=== PATIENT | male | born 1980 | race Caucasian/White ===

== ENCOUNTER 2016-08-04 12:13 | Observation (INO) | payer BC, OTHER ==
[2016-08-04] MEDS ORDERED: NS 0.9% 1000 ML* 1,000 ML IV ONE (16:15)
[2016-08-04 16:37] LABS: Hematocrit 47 % (42-52); Hemoglobin 15.9 g/dl (14.0-18.0); Mean Corpuscular HGB Conc 34 g/dl (31-36); Mean Corpuscular Hemoglobin 30 pg (27-31); Mean Corpuscular Volume 88 fL (80-94); Mean Platelet Volume 7 um3 (7.4-10.4); Red Blood Count 5.38 10^6/ul (4.0-5.4); Red Cell Distribution Width 14 % (10.5-15); White Blood Count 7.8 10^3/ul (3.5-10.8)
[2016-08-04 16:52] LABS: Albumin 4.3 g/dL (3.2-5.2); BUN/Creatinine Ratio 12.1 (8-20); Calcium 9.8 mg/dL (8.6-10.3); EGFR African American 78.5 (>60); Globulin 3.3 g/dL (2-4); Magnesium 2.1 mg/dL (1.9-2.7); Total Bilirubin 0.5 mg/dL (0.2-1.0); Total Protein 7.6 g/dL (6.4-8.9)
--- NOTE | 2016-08-04 16:55 | ED ---
naresh Leo Timothy, scribed for Jemma Proctor MD on 08/04/16 at 1613 . Shortness of Breath - HPI Summary HPI Summary: Kush Aguirre is a 36 yo male presenting to [facility] with 3/10 CP and SOB for the past several weeks. He states he has some coughing, but denies wheezing. No sputum. pt states notices is worse with activity and walking. 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 Pt states this occurred in the setting of a lower extremity injury. He denies any other Sx No fevers, chills, rash. No lightheadedness, nausea, vomiting. Pt was on xarelto for 6 months after saddle PE, so he has been off for 2.5 years. Pt quit smoking recently (approx 1 month) He is not taking any medication currently, and denies recent trauma. He has not traveled anywhere taking longer than a few hours. No calf pain. - History of Current Complaint Chief Complaint: EDShortnessOfBreath Time Seen by Provider: 08/04/16 15:56 Hx Obtained From: Patient Onset/Duration: Gradual Onset, Lasting Weeks, Still Present Current Severity: Moderate Dyspnea At: Rest Associated Signs & Symptoms: Cough (Nonproductive), Chest Pain Unrelated to Cough - Risk Factors Pulmonary Embolism: Previous PE Cardiac: Negative Pseudomonas: Negative Tuberculosis: Negative - Allergy/Home Medications Allergies/Adverse Reactions: Allergies Allergy/AdvReac Type Severity Reaction Status Date / Time No Known Allergies Allergy Verified 01/22/16 10:34 PMH/Surg Hx/FS Hx/Imm Hx Previously Healthy: Yes Endocrine/Hematology History: Reports: Hx Anticoagulant Therapy - xarelto 3 years ago Denies: Hx Diabetes, Hx Thyroid Disease Cardiovascular History: Reports: Hx Hypertension Respiratory History: Reports: Hx Pulmonary Embolism - saddle, Other Respiratory Problems/Disorders Denies: Hx Asthma, Hx Chronic Obstructive Pulmonary Disease (COPD) GI History: Denies: Hx Ulcer - Immunization History Date of Tetanus Vaccine: unk Date of Influenza Vaccine: no Infectious Disease History: No Infectious Disease History: Denies: Hx Clostridium Difficile, Hx Hepatitis, Hx Human Immunodeficiency Virus (HIV), Hx of Known/Suspected MRSA, Hx Shingles, Hx Tuberculosis, Hx Known/ Suspected VRE, Hx Known/Suspected VRSA, History Other Infectious Disease, Traveled Outside the [place] in Last 30 Days - Family History Known Family History: Positive: Blood Disorder - blood clots in grandmother - Social History Occupation: Employed Full-time Alcohol Use: Occasionally Hx Substance Use: No Substance Use Type: Reports: None Smoking Status (MU): Former Smoker Amount Used/How Often: 1 PPD Have You Smoked in the Last Year: Yes Review of Systems Constitutional: Negative Negative: Fever, Chills, Fatigue, Skin Diaphoresis Eyes: Negative Negative: Photophobia, Blurred Vision, Diplopia, Drainage, Erythema ENT: Negative Negative: Epistaxis, Dental Pain, Sore Throat, Ear Ache, Nasal Discharge Positive: Chest Pain. Negative: Palpitations Positive: Shortness Of Breath, Cough Gastrointestinal: Negative Negative: Abdominal Pain, Vomiting, Diarrhea, Nausea Genitourinary: Negative Negative: burning, dysuria, discharge, flank pain, hematuria, incontinence, pain , urgency Musculoskeletal: Negative Negative: Arthralgia, Myalgia, Decreased ROM, Edema Skin: Negative Negative: Rash, Bruising Neurological: Negative Negative: Headache, Weakness, Paresthesia, Numbness, Syncope, Slurred Speech Psychological: Normal Negative: Anxious, Depressed All Other Systems Reviewed And Are Negative: Yes Physical Exam Triage Information Reviewed: Yes Vital Signs On Initial Exam: Initial Vitals Temp Pulse Resp BP Pulse Ox 97.6 F 75 19 152/100 95 08/04/16 12:20 08/04/16 12:20 08/04/16 12:20 08/04/16 12:20 08/04/16 12:20 Vital Signs Reviewed: Yes Appearance: Positive: Well-Appearing, No Pain Distress, Well-Nourished Skin: Positive: Warm, Skin Color Reflects Adequate Perfusion, Dry Eyes: Positive: Normal, EOMI, CHARANJIT ENT: Positive: Pharynx normal, TMs normal. Negative: Tonsillar swelling Neck: Positive: Supple, Nontender, No Lymphadenopathy Respiratory/Lung Sounds: Positive: Clear to Auscultation, Breath Sounds Present Cardiovascular: Positive: Normal, RRR. Negative: Murmur, Rub Abdomen Description: Positive: Nontender, No Organomegaly, Soft Bowel Sounds: Positive: Present Musculoskeletal: Positive: Normal Neurological: Positive: Normal, Sensory/Motor Intact, Alert, Oriented to Person Place, Time, Normal Gait Psychiatric: Positive: Normal AVPU Assessment: Alert - Ferny Coma Scale Best Eye Response: 4 - Spontaneous Best Motor Response: 6 - Obeys Commands Best Verbal Response: 5 - Oriented Diagnostics - Vital Signs Vital Signs Temp Pulse Resp BP Pulse Ox 08/04/16 15:17 97.5 F 79 19 145/90 98 08/04/16 13:48 99.7 F 72 20 146/94 98 08/04/16 12:20 97.6 F 75 19 152/100 95 - Laboratory Lab Results: Lab Results 08/04/16 08/04/16 Range/Units 16:25 16:25 WBC 7.8 (3.5-10.8) 10^3/ul RBC 5.38 (4.0-5.4) 10^6/ul Hgb 15.9 (14.0-18.0) g/dl Hct 47 (42-52) % MCV 88 (80-94) fL MCH 30 (27-31) pg MCHC 34 (31-36) g/dl RDW 14 (10.5-15) % Plt Count 273 (150-450) 10^3/ul MPV 7 L (7.4-10.4) um3 Neut % (Auto) 59.2 (38-83) % Lymph % (Auto) 27.3 (25-47) % [place] % (Auto) 7.2 (1-9) % Eos % (Auto) 5.7 (0-6) % Baso % (Auto) 0.6 (0-2) % Absolute Neuts (auto) 4.6 (1.5-7.7) 10^3/ul Absolute Lymphs (auto) 2.1 (1.0-4.8) 10^3/ul Absolute Monos (auto) 0.6 (0-0.8) 10^3/ul Absolute Eos (auto) 0.4 (0-0.6) 10^3/ul Absolute Basos (auto) 0 (0-0.2) 10^3/ul Absolute Nucleated RBC 0 10^3/ul Nucleated RBC % 0 INR (Anticoag Therapy) 0.87 L (0.89-1.11) Result Diagrams: 08/04/16 16:25 08/04/16 16:25 Lab Statement: Any lab studies that have been ordered have been reviewed, and results considered in the medical decision making process. - CT Chest/thorax CT Interpretation: Positive (See Comments) - IMPRESSION: 1. MULTIPLE BILATERAL PULMONARY EMBOLI. THE APPEARANCE IS SIMILAR TO THE PRIOR CT STUDY AND SOME OF THE EMBOLI ON THE LEFT SIDE MAY BE CHRONIC ALTHOUGH THE EMBOLI ON THE RIGHT SIDE APPEAR ACUTE. 2. SMALL RIGHT UPPER LOBE PULMONARY NODULES, RECOMMEND A NONCONTRAST FOLLOW-UP CT OF THE CHEST IN 6 MONTH TIME TO DEMONSTRATE STABILITY. CT Interpretation Completed By: Radiologist - EKG 1228 Cardiac Rate: NL - 74 BPM EKG Interpretation: NSR @ 74 BPM, no acute ST T changes Re-Evaluation - Re-Evaluation First Eval Re-Evaluation Time: 17:53 Change: Improved Comment: Discussed imaging results with Pt. Will admit. moved to a tele bed. sats 95% RA Course/Dx - Course Assessment/Plan: Pt presents to the ED through ambulatory triage with report of intermittent SOB x 1 month. Pt with h/o PE - 3 years ago in setting of trauma - Pt concerned this is return. Will check labs, EKG, CTA. IVF. reassess - Diagnoses Provider Diagnoses: Pulmonary embolism - Physician Notifications Discussed Care of Patient With: 1750 - Dr. Proctor (Hospitalist) - Discussed Pt condition and results of imaging studies. Agrees to admit Pt. Lovenox 1mg/kg Discharge - Discharge Plan Condition: Stable Disposition: ADMITTED TO [facility] Referrals: Jamie Malcolm MD [Primary Care Provider] - The documentation as recorded by the naresh anne Timothy accurately reflects the service I personally performed and the decisions made by , Jemma Proctor MD.
[2016-08-04] MEDS ORDERED: Iohexol 350* (CONTRAST) 500 ML MDV IV ONE (17:17)
--- NOTE | 2016-08-04 17:50 | RAD ---
INDICATION: Shortness of breast, history of pulmonary embolism. COMPARISON: Comparison is made with a prior CT angiogram of the chest from July 04, 2013. TECHNIQUE: A CT angiogram of the chest was performed with intravenous following intravenous injection of 62 ml of Omnipaque 350 nonionic contrast. Contiguous axial sections were obtained from the lung apices through the lung bases. Images were reconstructed in the coronal and sagittal planes. FINDINGS: There is a large embolus present in the distal right main pulmonary artery extending into the right middle lobe segmental and basilar segmental arteries. There are also emboli in left lower lobe basilar segmental arteries. The heart is within normal limits in size. No pericardial effusion is present. The thoracic aorta is normal in caliber and demonstrates homogeneous contrast opacification. No significant enlarged mediastinal or hilar lymph nodes are seen. There are bilateral lower lobe groundglass infiltrates suggestive of atelectasis. There are 2 small nodules in the right upper lobe measuring 4 mm each which are not well seen on the prior study. No pleural effusion is present. No evidence for acute finding is seen in the abdomen on the upper abdomen images. The results of this exam were discussed with the referring clinician. No significant focal osseous abnormality is seen. IMPRESSION: 1. MULTIPLE BILATERAL PULMONARY EMBOLI. THE APPEARANCE IS SIMILAR TO THE PRIOR CT STUDY AND SOME OF THE EMBOLI ON THE LEFT SIDE MAY BE CHRONIC ALTHOUGH THE EMBOLI ON THE RIGHT SIDE APPEAR ACUTE. 2. SMALL RIGHT UPPER LOBE PULMONARY NODULES, RECOMMEND A NONCONTRAST FOLLOW-UP CT OF THE CHEST IN 6 MONTH TIME TO DEMONSTRATE STABILITY.
[2016-08-04] MEDS ORDERED: Enoxaparin(*) 100 MG/ML SYR SUBCUT ONE (17:56)
[2016-08-04] MEDS ORDERED: Enoxaparin(*) 30 MG/0.3 ML SYR ONE (18:03)
[2016-08-04] MEDS ORDERED: Enoxaparin(*) 80 MG/0.8 ML SYR ONE (18:03)
--- NOTE | 2016-08-04 19:29 | RAD ---
INDICATION: Pulmonary embolism evaluate for DVT. COMPARISON: Comparison is made with a prior ultrasound study from July 04, 2013. TECHNIQUE: Multiple real-time, color flow and Doppler tracings of both lower extremities were obtained. FINDINGS: The common femoral, femoral and profunda femoral veins all demonstrate normal compressibility, augmentation with compression and phasic response with respiration. The right popliteal vein is within normal limits. There is nonocclusive thrombus present within the left popliteal vein and occlusive thrombus within the left peroneal veins The right posterior tibial and peroneal veins demonstrate normal compressibility and augmentation with compression. IMPRESSION: DEEP VENOUS THROMBOSIS WITHIN THE LEFT POPLITEAL AND PERONEAL VEINS.
--- NOTE | 2016-08-04 22:55 | HP ---
HISTORY AND PHYSICAL: DATE OF ADMISSION: 08/04/16 PRIMARY CARE PHYSICIAN: Dr. Longo. CHIEF COMPLAINT: Shortness of breath. HISTORY OF PRESENT ILLNESS: Mr. Aguirre is a 36-year-old male with a past medical history of bilateral pulmonary emboli in 2013, as well as possible CKD who presents to the hospital with progressive shortness of breath. The patient states he thinks his symptoms began a few weeks ago. He had noticed a little difference in his breathing or he says it felt a bit more strenuous at times; however, this seemed very mild at that time. He had just quit smoking on the first of the year and he initially attributed it to this; however, in the past 3 or 4 days he noted significant worsening in his breathing as well as bilateral chest tightness. He states that just doing normal activities such as walking up the stairs or trying to sweep the floor left him significantly short of breath. He has also felt incredibly fatigued, sleeping a lot lately, has also had some recent congestion and rhinorrhea. Denies any lower extremity edema, fever or chills. With the worsening of the symptoms, he was reminded of his previous PE's and felt that this may be a recurrence, so he came to the hospital for further evaluation. CTA of the chest showed bilateral pulmonary emboli. The hospitalist service was consulted to consider the patient for admission. PAST MEDICAL HISTORY: 1. Bilateral pulmonary emboli in 2013. 2. Possible CKD. PAST SURGICAL HISTORY: None. HOME MEDICATIONS: None. ALLERGIES: The patient reports no known drug allergies. FAMILY HISTORY: Significant for maternal grandmother with blood clots, who was on Coumadin. SOCIAL HISTORY: The patient reports a 20 pack a year smoking history, quit about 1 month ago. Reports drinking 2 to 3 beers on the weekends. Occasional marijuana and nasal cocaine use. Denies any IV drug abuse. REVIEW OF SYSTEMS: A 12-point review of systems is negative except that as noted in the HPI. PHYSICAL EXAMINATION GENERAL: The patient is a pleasant middle-aged man, lying in bed, in no apparent distress. VITAL SIGNS: On admission, temperature 99.7, heart rate is 72, respiratory rate of 20, O2 saturation 98% on room air, blood pressure 146/94. HEENT: Pupils equal, round and reactive to light and accommodation. Anicteric sclerae. Moist mucous membranes. No cervical adenopathy. CARDIOVASCULAR: Regular rate and rhythm. S1 and S2 present. No murmurs, gallops or rubs. LUNGS: Clear to auscultation bilaterally. No wheezes, rales, or rhonchi. ABDOMEN: Soft, nontender, and nondistended. Bowel sounds positive. EXTREMITIES: No cyanosis, clubbing, or edema. NEUROLOGIC: The patient is alert and oriented x3. No focal neurological deficits. SKIN: Warm, dry and well perfused. LABS AND DIAGNOSTICS: White blood cell count of 7.8, hematocrit of 47, platelets of 273. INR of 0.87. Sodium 137, potassium 4.0, chloride of 102, carbon dioxide of 30, BUN of 16, creatinine of 1.32, glucose of 100, total bilirubin of 0.5, AST of 51, ALT of 58, alk phos of 67, CK of 1395, CK-MB of 9.7, troponin of 0.00. EKG shows normal sinus rhythm. Possible mild S1, Q3, and T wave flattening in lead III. CTA of the chest shows multiple bilateral pulmonary emboli. The appearance is similar to the prior CT study and some of the emboli on the left side may be chronic, although the emboli on the right side appeared acute. Small right upper lobe pulmonary nodules. Recommended followup CT of the chest in 6 months' time to demonstrate stability. ASSESSMENT AND PLAN: Multiple bilateral pulmonary emboli in a 36-year-old man with a past medical history of pulmonary embolisms in the past as well as possible chronic kidney disease. 1. Bilateral pulmonary emboli. The patient is surprisingly stable with the size of his pulmonary embolisms. He is not tachycardic, not tachypneic and not requiring oxygen; however, he is reporting dyspnea on exertion. We will start the patient on b.i.d. Lovenox, which was discussed with the pharmacy. We will order an echocardiogram add on a B-natriuretic peptide as well as lower extremity Dopplers. I will recheck CK and CK-MB; however, this is possibly due to strain. The patient was previously on Xarelto for 6 months after his previous pulmonary embolism and this is a possible treatment option again for the patient; however, he also wants to consider Coumadin. He would like to discuss further with the asparagus cutter, which we can contact tomorrow. It seems that on the last admission, the patient did have a hypercoagulable workup done with a negative prothrombin gene mutation, negative anticardiolipin antibodies, negative factor V Leiden, negative lupus anticoagulant. I do not see a protein C or protein S level. However, at this point, it seems that the patient will need to be on lifelong anticoagulation regardless of underlying hematological abnormalities. 2. Possible chronic kidney disease. The patient's creatinine is elevated at 1.3, which is around the level it was at the previous admission. He did receive some fluids in the emergency department, we will recheck his creatinine tomorrow. 3. DVT prophylaxis. Lovenox subcu. 4. Code status. The patient is a full code. TIME SPENT: Total time spent on this admission 50 minutes with over half the time spent [id number] with the patient, patient counseling and coordinating care. CC: Dr. Longo* [id number]/CPS #: [id number] MTDD
[2016-08-05 05:04] LABS: Albumin 3.7 g/dL (3.2-5.2); Calcium 9.1 mg/dL (8.6-10.3); EGFR African American 82.1 (>60); EGFR Non-African American 63.8 (>60); Globulin 2.7 g/dL (2-4); Potassium 3.7 mmol/L (3.5-5.0); Total Bilirubin 0.4 mg/dL (0.2-1.0); Total Protein 6.4 g/dL (6.4-8.9)
[2016-08-05] MEDS ORDERED: Enoxaparin(*) 150 MG/ML 1 ML SYRINGE SUBCUT SCH (06:00)
--- NOTE | 2016-08-05 12:03 | PN ---
Subjective Date of Service: 08/05/16 Interval History: Patient seen this morning. Took a walk around the unit, felt SOB by the end. No chest pain. Now relates that he had repeat ankle injury this past summer and has been much less ambulatory since then and has been off of work (although not completely immobile). Family History: Unchanged from Admission Social History: Unchanged from Admission Past Medical History: Unchanged from Admission Objective Active Medications: Enoxaparin Sodium (Lovenox(*)) 110 mg SUBCUT Q12H GILBERT Last Admin: 08/05/16 06:22 Dose: 110 mg Vital Signs 08/04/16 08/04/16 08/04/16 19:00 19:17 19:32 Temperature Pulse Rate 81 77 92 Respiratory 13 Rate Blood Pressure 143/94 (mmHg) O2 Sat by Pulse 96 95 97 Oximetry 08/04/16 08/04/16 08/04/16 20:00 20:15 20:21 Temperature 98.2 F Pulse Rate 92 93 Respiratory 20 20 Rate Blood Pressure 150/98 (mmHg) O2 Sat by Pulse 95 98 Oximetry 08/04/16 08/05/16 08/05/16 20:58 00:05 04:02 Temperature 98.1 F 98.0 F Pulse Rate 73 61 Respiratory 20 20 Rate Blood Pressure 132/85 150/86 141/80 (mmHg) O2 Sat by Pulse 96 98 Oximetry 08/05/16 08/05/16 07:15 08:00 Temperature 98.7 F Pulse Rate 61 Respiratory 16 16 Rate Blood Pressure 144/82 (mmHg) O2 Sat by Pulse 97 Oximetry Oxygen Devices in Use Now: None Appearance: Young, M, laying in bed in NAD Eyes: No Scleral Icterus Ears/Nose/Mouth/Throat: Mucous Membranes Moist Neck: NL Appearance and Movements; NL JVP Respiratory: Symmetrical Chest Expansion and Respiratory Effort, Clear to Auscultation Cardiovascular: NL Sounds; No Murmurs; No JVD, RRR Abdominal: NL Sounds; No Tenderness; No Distention Lymphatic: No Cervical Adenopathy Extremities: No Edema Skin: No Rash or Ulcers Neurological: Alert and Oriented x 3 Result Diagrams: 08/04/16 16:25 08/05/16 04:30 Assess/Plan/Problems-Billing Assessment: B/L pulmonary emboli, LLE DVT in a 36 yo M with possible CKD - Patient Problems (1) Pulmonary emboli Current Visit: Yes Comment: B/L PEs on CTA. LLE DVT in popliteal and peroneal. Continue Lovenox for now. Troponin and BNP negative. Hematology consult. Echo pending. Check ambulatory O2 sat. Added on AT3 to previous blood work. Will see if hematology would like any additional studies. (2) CKD (chronic kidney disease) Current Visit: Yes Comment: creatinine stable (3) HTN (hypertension) Current Visit: Yes Comment: BPs elevated in the setting of acute pathology, would recheck as outpatient (4) DVT prophylaxis Current Visit: Yes Comment: Lovenox
--- NOTE | 2016-08-05 13:14 | ECHO ---
Patient: RK MILLER [facility] Rec#: [id number] : 1980 Date: 08/05/2016 Age: 36y Height: 185.42 cm / 73.0 in Weight: 111.58 kg / 245.9 lbs Sex: M BSA: 2.35 Room#: 453 Admit Date#: 08/04/2016 Type: Inpatient Referring: SARAY SCHWARTZ MD Reading: Celia Mirza MD Pick Pack Worker: Lola Whitaker NIKKO CC: Awais Longo MD Transthoracic Echocardiogram Indication: Pulmonary Embolisn BP: 141/80 HR: 55 Rhythm: Bradycardia Findings History: Currently with PE, also bilateral PE 2013,possible CKD. Technical Comments: The study quality is good. Completed at 1203. Left Ventricle: The left ventricular chamber size is normal. Mild concentric left ventricular hypertrophy is observed. Global left ventricular wall motion and contractility are within normal limits. The estimated ejection fraction is 55-60%. Normal left ventricular diastolic filling is observed. Left Atrium: The left atrial chamber size is normal. Right Ventricle: The right ventricular cavity size is normal. The right ventricular global systolic function is mildly to moderately reduced. Right Atrium: The right atrial cavity size is normal. Aortic Valve: The aortic valve is trileaflet. There is no evidence of aortic regurgitation. There is no evidence of aortic stenosis. Mitral Valve: The mitral valve leaflets appear normal. There is no evidence of mitral regurgitation. There is no evidence of mitral stenosis. Tricuspid Valve: The tricuspid valve leaflets are normal. There is no evidence of tricuspid valve regurgitation. Unable to estimate the right ventricular systolic pressure. There is no tricuspid stenosis. Pulmonic Valve: The pulmonic valve appears normal. There is a trace pulmonic regurgitation. There is no pulmonic stenosis. Pericardium: The pericardium appears normal. Aorta: There is no dilatation of the ascending aorta. There is no dilatation of the aortic arch. There is no dilation of the aortic root. Pulmonary Artery: The main pulmonary artery appears normal. Venous: The venous system is not well visualized. Conclusions Mild concentric left ventricular hypertrophy is observed. The estimated ejection fraction is 55-60%. Normal left ventricular diastolic filling is observed. The right ventricular cavity size is normal. Mild to moderate decrease in RV systolic function. The aortic valve is trileaflet, all valves appear structurally normal with normal function. Compared with prior echo f 07/04/13 (in the setting of acute pulmonary embolus), the degree of LVH has improved, interval normalization of diastolic filling, improvement in RV diameter and systolic function. Measurements Name Value Normal Range RVIDd (AP) 2D 2.8 cm (0.9 - 2.6) RVDdMajor (2D) 4 cm (2.2 - 4.4) RAd ISD 4CH 5.3 cm (3.4 - 4.9) RA (A4C)W 3.7 cm (2.9 - 4.6) IVSd (2D) 1.2 cm (0.6 - 1) LVPWd (2D) 1.3 cm (0.6 - 1) LVIDd (2D) 3.7 cm (3.6 - 5.4) LVIDs (2D) 2.1 cm - LV FS (2D) 44 % (25 - 45) Aortic Annulus 2.3 cm (1.4 - 2.6) Ao root diameter (2D) 3.4 cm (2.1 - 3.5) Ascending Ao 3.2 cm (2.1 - 3.4) Aortic arch 2.4 cm (1.8 - 3.4) Descending Ao 0.8 cm - LA dimension (AP) 2D 3.2 cm (2.3 - 3.8) LAd ISD 4CH 5.1 cm (2.9 - 5.3) LA ISD 4CH W 4 cm (2.5 - 4.5) Name Value Normal Range LA ESV SP 4CH (A/L) 35 ml - LA ESV SP 2CH (A/L) 48 ml - LA ESV BP (A/L) 45 ml - LA ESV BP (A/L) index 18.96 ml/m2 - LA ESV SP 4CH (MOD) 33 ml - LA ESV SP 2CH (MOD) 46 ml - Name Value Normal Range MV E-wave Vmax 0.7 m/sec - MV deceleration time 225 msec - MV A-wave Vmax 0.7 m/sec - MV E:A ratio 1.01 ratio - LV septal e' Vmax 0.11 m/sec - LV lateral e' Vmax 0.17 m/sec - LV E:e' septal ratio 6.36 ratio - LV E:e' lateral ratio 4.11 ratio - Name Value Normal Range AV Vmax 1.2 m/sec - AV VTI 23.7 cm - AV peak gradient 6.07 mmHg - AV mean gradient 2.57 mmHg - LVOT Vmax 1.1 m/sec - LVOT VTI 24 cm - LVOT peak gradient 4.49 mmHg - LVOT mean gradient 2.48 mmHg - Name Value Normal Range PV Vmax 0.7 m/sec - PV peak gradient 2.21 mmHg -
[2016-08-05 15:40] LABS: Urine Bilirubin Negative (Negative); Urine Glucose Negative (Negative); Urine Nitrite Negative (Negative)
[2016-08-05 16:35] VITALS: BP 145/85
[2016-08-05] MEDS ORDERED: Rivaroxaban TAB(*) 15 MG PO SCH (18:00)
--- NOTE | 2016-08-05 19:44 | CONS ---
AMENDED REPORT NOW INCLUDES DATE OF CONSULT - ESIGNED BEFORE ADJUSTMENT CONSULTATION REPORT: DATE OF CONSULT/DICTATION: 08/05/16 REFERRING PHYSICIAN: Dr. Proctor. REASON FOR CONSULT: Pulmonary embolus. PRIMARY CARE PHYSICIAN: Dr. Longo. 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 He had a fairly serious ankle injury in February of 2013. His ankle swelled and remained swollen for months. He had fairly extreme pain. He was in and out of braces, but never saw a physician. He never had a cast and always remained active, playing softball, and going to work. In June, the swelling subsided and he started to develop shortness of breath. Reports shortness of breath with exertion and intermittent chest pain. Those symptoms accelerated around Felisa' time to the point that he could not go up a flight of stairs and he came to the emergency room. On July 04, he had a CTA of the chest that showed a large saddle pulmonary embolus. He had clots in the right and left main pulmonary artery with almost a complete occlusion of the right and left upper lobe pulmonary branches. He had a several-day admission. Thrombolysis was considered, but deemed unneeded and he was ultimately discharged on Xarelto. Additional studies at that time included an echocardiogram that showed okpnepib-tl-bmdmqe LVH with abnormal filling and faykvtqs-hg-mnxwvt dilation of the right ventricle with reduced RV function. He also had coagulation studies at that time that included a Leiden factor V and prothrombin gene mutation analysis that were both negative. He had anticardiolipin antibodies that were negative. He had a lupus anticoagulant sent, but that could not be performed because of heparin contaminant. He had a negative UA, but was noted to have a mildly elevated creatinine of 1.3. He did not have protein C, S or AT-III. After 6 months of Xarelto, his breathing had improved and he did well from mid 2012 up until February of this year. He re-injured his left ankle and again had it partially immobilized on and off for several months. He again remained active, but had to stop working, still played softball. He developed chest pain and shortness of breath approximately 5 days ago. He had worsening breathing and tightness that were very similar to the blood clot he had had previously. This triggered him coming to the emergency room. On presentation, he had a repeat CTA and repeat lower extremity ultrasound, both positive for thrombosis. He was admitted and placed on Lovenox 110 mg subcu every 12 hours. Today, his breathing and chest pain is approximately the same. He is anxious to go home. He had been planning ankle surgery and was going to see Dr. Mir today, ankle swelling and pain are stable. Review of his CTA from 08/04/16 and 07/04/13. He had a large saddle embolus on 07/04/13 with near occlusion of the right side and significant thrombus on the left. On the repeat exam today, there was significant improvement on the left side though still some residual thrombus. On the right side, it is similar, slightly less thrombolysis in the interim. It was read by Dr. Perez as potentially acute. I did and determinant is indeterminate if this is an acute or chronic thrombus. Ultrasound is similar. There is thrombus on the left lower extremity in similar distribution that was seen in 2013, appears improved, but difficult to say if there is new occlusive disease. PAST MEDICAL HISTORY: 1. Chronic ankle injury. Occurred back in 2012. He has been through physical therapy and ultimately is planning surgery with Dr. Mir. Symptoms increased this February when playing softball 6 days a week. 2. Question of chronic hypertension based on echocardiogram findings. PAST SURGICAL HISTORY: [place] teeth at 12. MEDICATIONS: Lovenox 110 subcu b.i.d. ALLERGIES: None. FAMILY HISTORY: Maternal grandmother had multiple thrombotic events, arterial and venous, and she is on long-term Coumadin. She is currently 90 years old. No other thrombotic history in the family. SOCIAL HISTORY: He was a smoker, but quit just a few weeks ago. Drinks occasionally. 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 Two children, 10 and 6 years old. REVIEW OF SYSTEMS: HEENT: Negative. Pulmonary: As above. Cardiac: Chest pain. No palpitations. Abdomen: Obese, nontender, nondistended. No hepatosplenomegaly. Extremities: He has trace edema in the left lower extremity. Negative Homans'. Mild pain in the left ankle. Good pulses. Skin: Negative. Neurologic: Alert and oriented x3. Normal speech patterns. Strength 5/5 throughout. Normal gait. Nodes: No peripheral lymphadenopathy. DIAGNOSTIC STUDIES/LAB DATA: As reviewed above. Normal CBC today with MCV of 88. Creatinine 1.27. Negative UA. His echocardiogram was done this morning, but is pending. ASSESSMENT AND PLAN: A 36-year-old male presenting with chest pain and history of saddle pulmonary emboli. Differential diagnosis includes recurrent pulmonary embolus, other thrombotic event such as myocardial infarction, musculoskeletal pain with chronic residual thrombus. I had a long discussion with the patient that it is difficult to tell at this time whether or not this is a second acute event or unrelated chest pain and radiographic evidence of prior thrombosis. It is also difficult to tell at this time if he has an acquired or inherited thrombophilia. 1. Continue anticoagulation for the time being. Lovenox subcu b.i.d. is reasonable. I think he could also go on Xarelto 15 mg p.o. b.i.d. for 3 weeks followed by 20 mg daily. Discharge from the hospital should be based on symptoms and we can continue his evaluation as an inpatient or outpatient. 2. I would like to send a D-dimer today, if negative, would decrease my suspicion for a second acute event. 3. I would like to resend lupus anticardiolipin antibodies. At some point, he needs to repeat dRVVT off heparin. Protein C, S, and AT-III may also be helpful. If D-dimer is positive, we will hold on any additional testing until he has had 3 to 6 months of anticoagulation and then could hold anticoagulant therapy briefly to check studies. Alternatively, if it is clear that he has had two thrombotic events, both with minor thrombotic stress, long-term anticoagulation may be appropriate regardless of thrombophilia evaluation. We discussed the risks of bleeding with Coumadin and Xarelto as well as a potential life-threatening nature of another thrombotic event. He can play softball on Xarelto if he is careful. He can also go back to work with precautions. 4. We will talk to Dr. Proctor about regarding any additional workup such as stress test to explain his pain. 5. Ankle surgery, on hold for the time being. 6. He will need long-term followup with Hematology. We will follow while he in the hospital, then I will need to see him soon after his discharge to continue his evaluation. 7. Mildly elevated creatinine, maybe secondary to large muscle mass. Nephrotic syndrome is hypercoagulable and I will recheck UA. CC: Dr. Longo * [id number]/[facility] #: [id number] DEANA
--- NOTE | 2016-08-06 09:11 | DS ---
DISCHARGE SUMMARY: DATE OF ADMISSION: 08/04/16 DATE OF DISCHARGE: 08/05/16 PRINCIPAL DISCHARGE DIAGNOSES: 1. Bilateral pulmonary emboli. 2. Left lower extremity DVT. SECONDARY DIAGNOSES: 1. History of bilateral pulmonary emboli. 2. Possible chronic kidney disease. MANAGER STAFFING DURING HOSPITALIZATION: Dr. Call, Hematology/Oncology. STUDIES DURING HOSPITALIZATION: 1. CTA of the chest. Impression: Multiple bilateral pulmonary em boli. The appearance is similar to the prior CT study and some of the emboli on the left may be chr onic, although the emboli on the right side appear acute. Small right upper lobe pulmonary nodules. Recommend a noncontrast followup CT of the chest in 6 months' time to demonstrate stability. 2. Transthoracic echocardiogram. Mild concentric LVH, estimated ejection fraction of 55-60%, samira l left ventricular diastolic filling is observed. The right ventricular cavity size is normal. Mil l-tp-ubirywwn decrease in right ventricular systolic function. The aortic valve is trileaflet. All valves appear structurally normal. Compared to the prior echo, June 2013, the degree of LVH gutiérrez s improved, interval normalization of diastolic filling, improvement in RV diameter and systolic fun ction. 3. Bilateral lower extremity Dopplers. Impression: Deep venous thrombosis in the left popliteal a nd peroneal veins. DISCHARGE MEDICATION: Xarelto 15 mg by mouth 2 times daily for 3 weeks, and subsequently will be fo llowed by 20 mg daily. HPI AND HOSPITAL SUMMARY: Please see the full history and physical done by me on 08/04/16 for full details. Briefly, Mr. Aguirre is a 36-year-old male with past medical history as above, who pre sented to the hospital with increased strenuous breathing over the past few weeks with significant w orsening in the past 3 to 4 days. He felt that this is similar to his previous history of pulmonary emboli which he had in 2012 to 2013. In the emergency department, he underwent a CTA of the chest that showed bilateral pulmonary emboli, some of which appeared to be acute. He was started on Loven ox for anticoagulation. Surprisingly, the patient's vital signs remained relatively stable. He did not require any oxygen t hroughout the hospitalization. He underwent a lower extremity Doppler that showed presence of deep venous thrombosis in the left lower extremity. An echocardiogram was done that showed improvement fr om his previous echocardiogram which was done in 2012. Patient had some elevations in his CK and CK -MB that were mild. His troponin remained normal, and his B-natriuretic peptide was normal. He und erwent an echocardiogram as above, and had a D-dimer checked by Dr. Call that was elevated at 371. Urinalysis is negative. Dr. Call evaluated the patient; he wanted to ensure this is not a cardiac c ause, which I did not feel that it was as he had negative troponins and normal EKG and normal-appear ing echo. Anticardiolipin antibody and antithrombin-3 blood tests were sent, and pending at the time of this discharge. The patient had a previous hypercoagulable workup that was largely negative. T he patient will be discharged home on Xarelto and will follow up with Dr. Call as an outpatient to edgardo parikh the duration of therapy. TIME SPENT: Total time spent on this discharge was 45 minutes. This is a summary of the hospitalization; please see the full medical record for further details. [id number]/[facility] #: [id number]
[2016-08-10 08:51] LABS: Phospholipid Ab IgG < 9.4 GPL; Phospholipid Ab IgM, S 11.1 MPL
== END 2016-08-05 17:47 | disposition home or self-care (01) ==
LOC: ED 12:13 → MEDTELE 18:39
PROVIDERS: ADMIT Hospitalist; ATTEND Hospitalist
DX: I26.99 Other pulmonary embolism without acute cor pulmonale (principal); I82.432 Acute embolism and thrombosis of left popliteal vein; I82.4Z2 Acute embolism and thrombosis of unspecified deep veins of left distal lower extremity; I12.9 Hypertensive chronic kidney disease with stage 1 through stage 4 chronic kidney disease, or unspecified chronic kidney disease; N18.9 Chronic kidney disease, unspecified; Z87.891 Personal history of nicotine dependence; R94.4 Abnormal results of kidney function studies; I51.7 Cardiomegaly; R06.02 Shortness of breath
CPT/HCPCS: 36415; 71275; 80053; 81003; 82550; 82553; 83735; 83880; 84484; 85025; 85300; 85379; 85610; 86147; 93005; 93306; 93970; 96360; 96361; 96372; 99223; 99284; G0378; J1650; Q9967

== ENCOUNTER 2017-12-03 17:58 | Emergency (ER) | payer OTHER ==
[2017-12-03] MEDS ORDERED: traMADol TAB* 50 MG PO ONE (18:05)
[2017-12-03 18:06] VITALS: BP 144/88
--- NOTE | 2017-12-03 18:13 | ED ---
Laceration/Wound HPI - HPI Summary HPI Summary: Patient is a 37-year-old male presenting to the with a 1 cm x 0.2 cm piece of glass to the left calcaneus. 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 Endorses 8/10 pain. Denies any numbness or tingling. Patient is taking Xarelto for a previous saddle PE occurring for years ago. Denies any other symptoms or complaints at this time. Tetanus is up-to-date. - History of Current Complaint Stated Complaint: GLASS IN FOOT Time Seen by Provider: 12/03/17 17:59 Hx Obtained From: Patient Mechanism of Injury: Sharp/Blunt Trauma Onset/Duration: Sudden Onset Aggravating: Movement Alleviating: Compression Timing: Constant Onset Severity: Mild Current Severity: Mild Pain Intensity: 8 Pain Scale Used: 0-10 Numeric Associated Signs & Symptoms: Negative - Additional Pertinent History Primary Care Physician: ZURDO - Allergy/Home Medications Allergies/Adverse Reactions: Allergies Allergy/AdvReac Type Severity Reaction Status Date / Time No Known Allergies Allergy Verified 12/03/17 18:01 Home Medications: Home Medications Rivaroxaban TAB(*) [Xarelto 15 mg(*)] 20 mg PO DAILY 12/03/17 [History Confirmed 12/03/17] PMH/Surg Hx/FS Hx/Imm Hx Previously Healthy: Yes Endocrine/Hematology History: Reports: Hx Anticoagulant Therapy - xarelto 3 years ago Denies: Hx Diabetes, Hx Thyroid Disease Cardiovascular History: Reports: Hx Hypertension Denies: Hx Pacemaker/ICD Respiratory History: Reports: Hx Pulmonary Embolism - saddle, Other Respiratory Problems/Disorders Denies: Hx Asthma, Hx Chronic Obstructive Pulmonary Disease (COPD) GI History: Denies: Hx Ulcer History: Denies: Hx Renal Disease Sensory History: Denies: Hx Hearing Aid Psychiatric History: Denies: Hx Panic Disorder - Immunization History Date of Tetanus Vaccine: up to date Date of Influenza Vaccine: unk Hx Pertussis Vaccination: No Immunizations Up to Date: Unable to Obtain/Confirm Infectious Disease History: No Infectious Disease History: Denies: Hx Clostridium Difficile, Hx Hepatitis, Hx Human Immunodeficiency Virus (HIV), Hx of Known/Suspected MRSA, Hx Shingles, Hx Tuberculosis, Hx Known/ Suspected VRE, Hx Known/Suspected VRSA, History Other Infectious Disease, Traveled Outside the [place] in Last 30 Days - Family History Known Family History: Positive: None, Blood Disorder - blood clots in grandmother - Social History Occupation: Employed Full-time Lives: With Family Alcohol Use: Occasionally Hx Substance Use: No Substance Use Type: Reports: None Hx Tobacco Use: Yes Smoking Status (MU): Former Smoker Amount Used/How Often: 1 PPD Have You Smoked in the Last Year: Yes Review of Systems Constitutional: Negative Negative: Fever, Chills, Fatigue Cardiovascular: Negative Respiratory: Negative Musculoskeletal: Negative Positive: Other - FB in calcaneus Neurological: Negative Psychological: Normal All Other Systems Reviewed And Are Negative: Yes Physical Exam Triage Information Reviewed: Yes Vital Signs On Initial Exam: Initial Vitals Temp Pulse Resp BP Pulse Ox 99.2 F 88 18 144/88 98 12/03/17 18:02 12/03/17 18:02 12/03/17 18:02 12/03/17 18:02 12/03/17 18:02 Vital Signs Reviewed: Yes Appearance: Positive: Well-Appearing, Well-Nourished Skin: Positive: Warm, Skin Color Reflects Adequate Perfusion, Other - FB from calcaneous Head/Face: Positive: Normal Head/Face Inspection Neck: Positive: Supple, Nontender Respiratory/Lung Sounds: Positive: Clear to Auscultation, Breath Sounds Present Cardiovascular: Positive: RRR, Pulses are Symmetrical in both Upper and Lower Extremities Musculoskeletal: Positive: Normal, Strength/ROM Intact Neurological: Positive: Speech Normal Psychiatric: Positive: Normal, Affect/Mood Appropriate AVPU Assessment: Alert Diagnostics - Vital Signs Vital Signs Temp Pulse Resp BP Pulse Ox 12/03/17 18:02 99.2 F 88 18 144/88 98 - Laboratory Lab Statement: Any lab studies that have been ordered have been reviewed, and results considered in the medical decision making process. Laceration Repair Course/Dx - Course Course Of Treatment: During the course of treatment, the patient is evaluated for left calcaneal soft tissue foreign body. 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 The glass is protruding from the dermis of the skin by approximately 0.7 cm. X-ray obtained to assess for depth. Forceps used to dislodge glass. Patient tolerated well. No bleeding from the wound. Occlusive gauze, Telfa and Kerlix wrapped. Tramadol is given for pain. - Differential Dx Differental Diagnoses: Foreign Body - Clinical Impression Provider Diagnoses: Soft tissues foreign body Discharge - Sign-Out/Discharge Documenting (check all that apply): Discharge/Admit/Transfer - Discharge Plan Condition: Stable Disposition: HOME Patient Education Materials: Soft Tissue Foreign Body (ED) Referrals: Awais Longo MD [Primary Care Provider] - Additional Instructions: Keep area clean and dry Occlusive gauze, then telfa, then wrap with gauze Coban (brown) use only if continues to bleed - Billing Disposition and Condition Condition: STABLE Disposition: HOME
--- NOTE | 2017-12-03 18:46 | RAD ---
INDICATION: Glass versus left calcaneus COMPARISON: None. TECHNIQUE: 2 views of the left foot were obtained. FINDINGS: On the lateral view images there is a 9 mm length foreign body extending into the superficial subcutaneous tissue. No other radiographically visible foreign bodies are seen. The adequately corticated bones are properly aligned. Joint spaces appear maintained. No fracture, dislocation or focal bony abnormality is seen. IMPRESSION: SUBCUTANEOUS FOREIGN BODY EXTENDING OUT OF THE DERMIS OVERLYING THE LEFT CALCANEUS
== END 2017-12-03 18:45 | disposition home or self-care (01) ==
LOC: UCEAST 17:58
DX: S91.342A Puncture wound with foreign body, left foot, initial encounter (principal); W22.8XXA Striking against or struck by other objects, initial encounter; Y93.9 Activity, unspecified; Y92.000 Kitchen of unspecified non-institutional (private) residence as the place of occurrence of the external cause; I10 Essential (primary) hypertension; Z86.711 Personal history of pulmonary embolism; Z79.01 Long term (current) use of anticoagulants; Z83.2 Family history of diseases of the blood and blood-forming organs and certain disorders involving the immune mechanism; Z87.891 Personal history of nicotine dependence
CPT/HCPCS: 99212; A9270-GY; G0463

== ENCOUNTER 2017-12-20 20:22 | Emergency (ER) | payer OTHER ==
[2017-12-20 20:34] VITALS: BP 147/86
[2017-12-20] MEDS ORDERED: Tetracaine 0.5% OPTH.SOL 4 ML* 1 DROP BTL BOTH EYES ONE (20:47)
[2017-12-20] MEDS ORDERED: Eye Irrigation Solution 30 ML BOTTLE ONE (20:56)
[2017-12-20] MEDS ORDERED: HYDROcodone/ACETAMIN 5-325 MG* 1 TAB PO ONE ×2 (20:59→21:00)
[2017-12-20] MEDS ORDERED: Eye Irrigation Solution 30 ML BOTTLE RIGHT EYE ONE (20:59)
[2017-12-20] MEDS ORDERED: Erythromycin OPTH OINT* APPLIC OINT RIGHT EYE ONE (21:01)
--- NOTE | 2017-12-30 12:58 | UC ---
Tomasa Leo Elizabeth, scribed for Elier Odonnell MD on 12/20/17 at 2053 . Eye Complaint HPI - HPI Summary HPI Summary: This patient is a 37 year old M presenting to [facility] with a chief complaint of right eye irritation and pain since 1 day ago. The patient reports that he got something in his eye yesterday while cleaning his BBQ grill with a steel brush and that the foreign body is still there. The patient rates the pain 4/10 in severity. Symptoms aggravated by nothing. Symptoms alleviated by nothing. Patient reports that he tried several things, including using a magnet, to remove the foreign body with no success. - History of Current Complaint Chief Complaint: UCEye Stated Complaint: EYE IRRITATION Time Seen by Provider: 12/20/17 20:41 Hx Obtained From: Patient Onset/Duration: Sudden Onset, Lasting Days - 1 day, Still Present Timing: Constant Severity Initially: Mild Severity Currently: Mild Pain Intensity: 4 Pain Scale Used: 0-10 Numeric Character: Foreign Body Sensation Aggravating Factor(s): Nothing Alleviating Factor(s): Nothing - Allergies/Home Medications Allergies/Adverse Reactions: Allergies Allergy/AdvReac Type Severity Reaction Status Date / Time No Known Allergies Allergy Verified 12/20/17 20:35 PMH/Surg Hx/FS Hx/Imm Hx Previously Healthy: Yes Other History Of: Anticoagulant Therapy - xarelto 3 years ago - Surgical History Surgical History: None - Family History Known Family History: Positive: None, Blood Disorder - blood clots in grandmother - Social History Alcohol Use: Rare Substance Use Type: None Smoking Status (MU): Former Smoker Amount Used/How Often: 1 PPD Have You Smoked in the Last Year: Yes - Immunization History Most Recent Influenza Vaccination: never Most Recent Tetanus Shot: within last five years Most Recent Pneumonia Vaccination: never Review of Systems Constitutional: Negative - NEGATIVE FEVER Eyes: Other - foreign body in right eye ENT: Negative - NEGATIVE EPISTAXIS Gastrointestinal: Negative - NEGATIVE VOMITING All Other Systems Reviewed And Are Negative: Yes Physical Exam - Summary Physical Exam Summary: VITAL SIGNS: Reviewed. GENERAL: Patient is a well-developed and nourished MALE who is lying comfortable in the stretcher. Patient is not in any acute respiratory distress. HEAD AND FACE: Normocephalic EYES: PERRLA, EOMI x 2.Conjuctival injection. Positive foreign body at 3 o clock and corneal abrasion in same location EARS: Hearing grossly intact. MOUTH: Oropharynx within normal limits. NECK: Supple, trachea is midline, no adenopathy, no JVD, no carotid bruit. CHEST: Symmetric, no tenderness at palpation LUNGS: Clear to auscultation bilaterally. No wheezing or crackles. CVS: Regular rate and rhythm, S1 and S2 present, no murmurs or gallops appreciated. ABDOMEN: Soft, non-tender. Bowel sounds are normal. No abdominal abnormal pulsations. EXTREMITIES: Full ROM in all major joints, no edema, no cyanosis or clubbing. NEURO: Alert and oriented x 3. No acute neurological deficits. Speech is normal and follows commands. SKIN: Dry and warm Triage Information Reviewed: Yes Vital Signs: Initial Vital Signs Temp 97.6 F 12/20/17 20:29 Pulse 83 12/20/17 20:29 Resp 16 12/20/17 20:29 BP 147/86 12/20/17 20:29 Pulse Ox 100 12/20/17 20:29 Vital Signs Reviewed: Yes Procedures - Eye Procedure Right Eye FB Removal: removal w/ cotton swab Eye Irrigated w/ Saline (ccs): 30 Eye Complaint Course/Dx - Course Course Of Treatment: I partially removed the foreing body. However, there is a remainning FB which it is not passible to remove. Will apply erythromycin ointment and eye patch and f/u with Ophtalmology tomorro AM. If symptoms worsen return to the UC or ED> - Differential Dx/Diagnosis Provider Diagnoses: Eye FB Discharge - Sign-Out/Discharge Documenting (check all that apply): Discharge/Admit/Transfer - Discharge Plan Condition: Stable Disposition: HOME Discharge Disposition Comment: discharge home Prescriptions: HYDROcodone/ACETAMIN 5-325 MG* [Byars 5-325 TAB*] 1 tab PO Q6H PRN #12 tab MDD 4 PRN Reason: Pain Patient Education Materials: Eye Foreign Body (ED) Referrals: Awais Longo MD [Primary Care Provider] - Bull Mcfarland MD [Medical Doctor] - 1 Day - Billing Disposition and Condition Condition: STABLE Disposition: Home The documentation as recorded by the Tomasa anne Elizabeth accurately reflects the service I personally performed and the decisions made by Blas marcano Walter, MD.
== END 2017-12-20 21:30 | disposition home or self-care (01) ==
LOC: UCEAST 20:22
DX: T15.01XA Foreign body in cornea, right eye, initial encounter (principal); Y93.G9 Activity, other involving cooking and grilling; Y93.89 Activity, other specified; Y92.008 Other place in unspecified non-institutional (private) residence as the place of occurrence of the external cause; Z87.891 Personal history of nicotine dependence
CPT/HCPCS: 99213; A9270-GY; G0463

== ENCOUNTER 2017-12-31 14:29 | Emergency (ER) | payer OTHER ==
[2017-12-31 14:43] VITALS: BP 129/88
[2017-12-31] MEDS ORDERED: Tetracaine 0.5% OPTH.SOL 4 ML* 1 DROP BTL LEFT EYE ONE (15:02)
--- NOTE | 2017-12-31 15:08 | UC ---
Eye Complaint HPI - HPI Summary HPI Summary: Patient states he flipped his glasses up after work today and got a speck of something in his left eye. States that he tried to remove it himself and flushed the eye without success. Denies any visual change, does have tearing but denies any discharge. States that he just went Dr Jeong to have a foreign body removed from his eye in the past week. He notes that it could be a piece of metal or grinding from a sanding wheel. - History of Current Complaint Hx Obtained From: Patient Onset/Duration: Sudden Onset Timing: Constant Pain Intensity: 4 Aggravating Factor(s): Blinking Alleviating Factor(s): Nothing Associated Signs And Symptoms: Negative: Photophobia, Drainage (Purulent), Vision Impairment Bilateral, Fever, Swelling <Esha Moncada - Last Filed: 12/31/17 15:38> <Jemma Proctor - Last Filed: 01/02/18 07:16> - History of Current Complaint Chief Complaint: UCEye Stated Complaint: EYE IRRITATION Time Seen by Provider: 12/31/17 14:59 - Allergies/Home Medications Allergies/Adverse Reactions: Allergies Allergy/AdvReac Type Severity Reaction Status Date / Time No Known Allergies Allergy Verified 12/31/17 14:44 PMH/Surg Hx/FS Hx/Imm Hx - Additional Past Medical History 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 Other History Of: Anticoagulant Therapy - xarelto 3 years ago - Surgical History Surgical History: None - Family History Known Family History: Positive: None, Blood Disorder - blood clots in grandmother - Social History Occupation: Employed Full-time Alcohol Use: Rare Substance Use Type: None Smoking Status (MU): Former Smoker Amount Used/How Often: 1 PPD Have You Smoked in the Last Year: Yes - Immunization History Most Recent Influenza Vaccination: never Most Recent Tetanus Shot: within last five years Most Recent Pneumonia Vaccination: never Hx Tetanus, Diphtheria Vaccination: Yes - utd Vaccination Up to Date: Yes <Esha Moncada - Last Filed: 12/31/17 15:38> Review of Systems Constitutional: Negative Skin: Negative Eyes: Other - FB, tearing L eye ENT: Negative Respiratory: Negative Cardiovascular: Negative Gastrointestinal: Negative Genitourinary: Negative Motor: Negative Neurovascular: Negative Musculoskeletal: Negative Neurological: Negative Psychological: Negative Is Patient Immunocompromised?: No All Other Systems Reviewed And Are Negative: Yes <Esha Moncada - Last Filed: 12/31/17 15:38> Physical Exam Triage Information Reviewed: Yes Appearance: Well-Appearing Vital Signs: Initial Vital Signs Temp 98.6 F 12/31/17 14:39 Pulse 77 12/31/17 14:39 Resp 14 12/31/17 14:39 BP 129/88 12/31/17 14:39 Pulse Ox 100 12/31/17 14:39 Vital Signs Reviewed: Yes Eyes: Positive: Other: - Visual acuity without correction OS 20/25 both eyes 20/ 20 OD 20/20. No periorbital edema or erythema. Mild tearing and injection to the left eye. Tiny foreign body appreciated central cornea. Anterior chamber clear. Upper and lower lid everted no foreign bodies. ENT: Positive: Pharynx normal, TMs normal. Negative: Nasal congestion, Nasal drainage Neck: Positive: Supple, Nontender, No Lymphadenopathy Respiratory: Positive: Lungs clear, Normal breath sounds Cardiovascular: Positive: RRR Abdomen Description: Positive: Nontender, No Organomegaly, Soft Bowel Sounds: Positive: Present Musculoskeletal: Positive: ROM Intact Neurological: Positive: Alert Psychological: Positive: Age Appropriate Behavior Skin Exam: Normal <Esha Moncada - Last Filed: 12/31/17 15:38> Vital Signs: Initial Vital Signs Temp 98.6 F 12/31/17 14:39 Pulse 77 12/31/17 14:39 Resp 14 12/31/17 14:39 BP 129/88 12/31/17 14:39 Pulse Ox 100 12/31/17 14:39 <Jemma Proctor - Last Filed: 01/02/18 07:16> Procedures - Procedure Summary Procedure Summary: Procedure: Tetracaine placed in left eye. Sterile Q-tip saturated with tetracaine and used to sweep foreign body without success. Blunt edge of curette used to sweep foreign body and luisa of a foreign body was removed; however, a brown speck remains at this site. Left eye stained and no dendrites , ulcerations or perforations. A tiny abrasion at foreign body site appreciated. I then flushed with sterile sodium chloride. <Esha Moncada - Last Filed: 12/31/17 15:38> Eye Complaint Course/Dx - Course Course Of Treatment: I attempted to make follow-up appointment for this patient from here to his eye doctor, Dr. Young; however, his insurance requires a physician and they do not have a physician in the office. I attempted to make an appointment for him with Dr. Anderson; however, patient was not willing to wait while I arrange this for him. I strongly encouraged he follow up with Dr. Young this Wednesday and go to the ER for any worsening. - Differential Dx/Diagnosis Provider Diagnoses: FB L eye-partial removal. <Esha Moncada - Last Filed: 12/31/17 15:38> Discharge - Sign-Out/Discharge Documenting (check all that apply): Discharge/Admit/Transfer - Billing Disposition and Condition Condition: STABLE Disposition: Home <Esha Moncada - Last Filed: 12/31/17 15:38> - Billing Disposition and Condition Condition: STABLE Disposition: Home <Jemma Proctor - Last Filed: 01/02/18 07:16> - Discharge Plan Condition: Stable Disposition: HOME Prescriptions: Erythromycin OPHTH.OINT* [Ilotycin OPHTH.OINT*] 1 applic LEFT EYE Q6H 7 Days #1 ophth.oint Patient Education Materials: Eye Foreign Body (ED) Referrals: Awais Longo MD [Primary Care Provider] - Dashawn Young MD [Medical Doctor] - Additional Instructions: FOLLOW UP DR MERINO SOON POSSIBLE. GO TO THE ER FOR ANY WORSENING. Attestation Statement User Type: Provider - I was available for consult. This patient was seen by the ALBERTA. The patient was not presented to, seen by, or examined by me. -Damián <Jemma Proctor - Last Filed: 01/02/18 07:16>
[2017-12-31] MEDS ORDERED: Fluorescein Sod TOPICAL 0.6* 0.6 MG TEST OPHTHALMIC ONE (15:09)
== END 2017-12-31 15:41 | disposition home or self-care (01) ==
LOC: UCCORT 14:29
DX: T15.92XA Foreign body on external eye, part unspecified, left eye, initial encounter (principal); S00.252A Superficial foreign body of left eyelid and periocular area, initial encounter; Z87.891 Personal history of nicotine dependence
CPT/HCPCS: 99212; A9270-GY; G0463

== ENCOUNTER 2019-05-10 13:06 | Emergency (ER) | payer BC ==
[2019-05-10 13:36] VITALS: BP 136/91
--- NOTE | 2019-05-10 14:21 | UC ---
Hand/Wrist HPI - HPI Summary HPI Summary: JAMMED RIGHT FOURTH FINGER ABOUT 1 MONTH AGO. HAS HAD PAIN AND SWELLING SINCE THEN. HAS A HEALING ABRASION AT THE TIP OF THE FINGER. NO FEVER. THINKS HE IS UP-TO-DATE TETANUS. - History Of Current Complaint Chief Complaint: UCUpperExtremity Stated Complaint: HAND AND ARM PAIN Time Seen by Provider: 05/10/19 13:58 Hx Obtained From: Patient Onset/Duration: Gradual Onset, Lasting Weeks, Still Present Severity Initially: Moderate Severity Currently: Moderate Pain Intensity: 3 Pain Scale Used: 0-10 Numeric Character Of Pain: Dull, Aching Aggravating Factor(s): Movement Alleviating Factor(s): Rest Associated Signs And Symptoms: Positive: Swelling Related History: Dominant Hand Right - Allergies/Home Medications Allergies/Adverse Reactions: Allergies Allergy/AdvReac Type Severity Reaction Status Date / Time No Known Allergies Allergy Verified 05/10/19 13:30 PMH/Surg Hx/FS Hx/Imm Hx - Additional Past Medical History Additional PMH: PE Cardiovascular History: Hypertension Other History Of: Anticoagulant Therapy - xarelto 3 years ago - Surgical History Surgical History: None - Family History Known Family History: Positive: None, Blood Disorder - blood clots in grandmother - Social History Alcohol Use: None Substance Use Type: Marijuana Smoking Status (MU): Former Smoker Amount Used/How Often: 1 PPD Have You Smoked in the Last Year: Yes When Did the Patient Quit Smoking/Using Tobacco: 2016 - Immunization History Most Recent Influenza Vaccination: never Most Recent Tetanus Shot: within last five years Most Recent Pneumonia Vaccination: never Hx Tetanus, Diphtheria Vaccination: Yes - utd Vaccination Up to Date: Yes Review of Systems All Other Systems Reviewed And Are Negative: Yes Constitutional: Positive: Negative Skin: Positive: Other - HEALING ABRASION RIGHT 4TH FINGER Respiratory: Positive: Negative Cardiovascular: Positive: Negative Gastrointestinal: Positive: Negative Musculoskeletal: Positive: Decreased ROM, Edema Physical Exam Triage Information Reviewed: Yes Appearance: Well-Appearing, No Pain Distress, Well-Nourished Vital Signs: Initial Vital Signs Temp 98.7 F 05/10/19 13:30 Pulse 76 05/10/19 13:30 Resp 16 05/10/19 13:30 BP 136/91 05/10/19 13:30 Pulse Ox 99 05/10/19 13:30 Vital Signs Reviewed: Yes Eyes: Positive: Conjunctiva Clear ENT: Positive: Hearing grossly normal Neck: Positive: Supple Respiratory: Positive: No respiratory distress, No accessory muscle use Cardiovascular: Positive: Pulses Normal Abdomen Description: Positive: Soft Musculoskeletal: Positive: ROM Limited @ - RIGHT 4TH FINGER, Edema @ - RIGHT 4TH FINGER Neurological: Positive: Alert Psychological: Positive: Age Appropriate Behavior Skin: Positive: Other - HEALING ABRASION TIP OF RIGHT 4TH FINGER Diagnostics - Radiology RIGHT 4TH FINGER XRAYS Radiology Interpretation Completed By: Radiologist Summary of Radiographic Findings: SOFT TISSUE SWELLING, NO FRACTURE IS SEEN. Hand/Wrist Course/Dx - Course Course Of Treatment: X-RAY NEGATIVE FOR FRACTURE DISLOCATION. PATIENT PRESENTATION CONSISTENT WITH SOFT TISSUE INFECTION AND HEALING ABRASION. WILL TREAT WITH BACTRIM TWICE DAILY FOR 10 DAYS. CONTINUE HOT SOAKS. TYLENOL FOR DISCOMFORT. HYDROCODONE FOR BREAKTHROUGH. FOLLOW-UP WITH ORTHOPEDICS IF NOT IMPROVING EXPECTED. CORE BAKER UNREMARKABLE. REFERENCE #: [id number] - Differential Dx/Diagnosis Provider Diagnosis: Cellulitis of right ring finger Discharge ED - Sign-Out/Discharge Documenting (check all that apply): Patient Departure All imaging exams completed and their final reports reviewed: Yes - Discharge Plan Condition: Stable Disposition: HOME Prescriptions: HYDROcodone/ACETAMIN 5-325 MG* [[place] 5-325 TAB*] 1 tab PO Q6H PRN #12 tab MDD 4 PRN Reason: Pain Sulfamethox/Trimethoprim DS* [Bactrim DS 800/160 TAB*] 1 tab PO BID #20 tab Patient Education Materials: Cellulitis (ED), Contusion in Adults (ED) Forms: *Work Release Referrals: Awais Longo MD [Primary Care Provider] - If Needed Penny Chavez MD [Medical Doctor] - 1 Week Additional Instructions: X-RAYS NEGATIVE FOR FRACTURE OR DISLOCATION. YOUR FINGER APPEARS INFECTED. CONTINUE HOT SOAKS SEVERAL TIMES DAILY. TAKE THE ANTIBIOTICS TWICE DAILY PRESCRIBED. TYLENOL NEEDED FOR DISCOMFORT. HYDROCODONE FOR BREAKTHROUGH. FOLLOW-UP WITH ORTHOPEDICS WITHIN A WEEK IF YOUR SYMPTOMS ARE NOT IMPROVING WITH THIS TREATMENT. - Billing Disposition and Condition Condition: STABLE Disposition: Home
[2019-05-10] MEDS ORDERED: Tetan/Diph/Pertus SYR(Tdap)* 0.5 ML SYR(BOOSTRIX) use SYR contains LATEX IM ONE (14:38)
== END 2019-05-10 14:49 | disposition home or self-care (01) ==
LOC: UCEAST 13:06
DX: L03.011 Cellulitis of right finger (principal); S60.414D Abrasion of right ring finger, subsequent encounter; Z87.891 Personal history of nicotine dependence; X58.XXXD Exposure to other specified factors, subsequent encounter
CPT/HCPCS: 73140; 90715; 99212; G0463